=== PATIENT | female | born 1970 | race Caucasian/White ===

== ENCOUNTER → 2017-05-19 | Outpatient (CLI) | payer BC ==
[~2017-05-19] MED LIST: ACHD5005 PO; ALPR0.2550 PO; ASP325TEC PO; CHOL200018 PO; CTRZ10T PO; CYCL10TA9 PO; HYDR-757 PO; IBP600T1 PO; NAPR-243 PO; OMEG-12 PO; OMEG10005 PO; PHEN37.555 PO; PNT40TEC PO; SITA100T PO; SITA25TA PO; SPIR100T28 PO; SULF1TAB35 PO; [UNRECOGNIZED DRUG - OTHER]; [UNRECOGNIZED DRUG - REMARK]
[2017-05-19 08:30] LABS: MEAN PLATELET VOLUME 9.2 FL (7.4-10.4); RED BLOOD COUNT 5.17 10^6/uL (4.35-5.85); RED CELL DISTRIBUTION WIDTH 13.4 % (10.0-14.5)
[2017-05-19 08:48] LABS: ALANINE AMINOTRANSFERASE 26 U/L (0-55); ALBUMIN 4.7 GM/DL (3.2-4.5); ANION GAP 11 MMOL/L (5-14); ASPARTATE AMINO TRANSFERASE 16 U/L (5-34); BILIRUBIN,TOTAL 0.9 MG/DL (0.1-1.0); BLOOD UREA NITROGEN 14 MG/DL (7-18); BUN/CREATININE RATIO 19; CALCIUM 9.8 MG/DL (8.5-10.1); CARBON DIOXIDE 21 MMOL/L (21-32); CHLORIDE 105 MMOL/L (98-107); CHOLESTEROL 231 MG/DL (< 200); CREATININE SERUM 0.75 MG/DL (0.60-1.30); DIRECT LDL 164 MG/DL (1-129); GFR ESTIMATED > 60; GLUCOSE 105 MG/DL (70-105); SODIUM 137 MMOL/L (135-145); TOTAL PROTEIN 7.9 GM/DL (6.4-8.2); TRIGLYCERIDES 252 MG/DL (<150); VLDL CHOLESTEROL 50 MG/DL (5-40)
[2017-05-19 09:08] LABS: THYROID STIMULATING HORMONE 2.04 UIU/ML (0.35-4.94)
== END ==
LOC: LAB 08:09
PROVIDERS: ATTEND Nurse Practitioner Family
DX: E78.5 Hyperlipidemia, unspecified (principal); E03.9 Hypothyroidism, unspecified
CPT/HCPCS: 36415; 80053; 80061; 84439; 84443; 84481; 85027

== ENCOUNTER → 2017-05-23 | Outpatient (CLI) | payer BC ==
--- NOTE | 2017-05-23 11:54 | Diagnostic Imaging Report ---
PROCEDURE: US Thyroid. TECHNIQUE: Multiple real-time grayscale images were obtained of the thyroid in various projections. Thyroid ultrasound. INDICATION: Right thyroid nodule. The left thyroid lobe has been removed 5 years ago. FINDINGS: The right thyroid lobe is 5.6 x 2.2 x 2.2 CM. It is fairly homogeneous with no focal lesion seen. The left lobe has been removed. IMPRESSION: Status post left hemithyroidectomy with no focal nodule seen in the right thyroid lobe. Dictated by: Dictated on workstation # [id number]
== END ==
LOC: RAD 11:01
PROVIDERS: ATTEND Internal Medicine
DX: E89.0 Postprocedural hypothyroidism (principal)
CPT/HCPCS: 76536

== ENCOUNTER → 2017-06-19 | Outpatient (CLI) | payer BC ==
--- NOTE | 2017-06-20 09:01 | Diagnostic Imaging Report ---
Digital mammogram bilateral screening. INDICATION: Screening. This study was compared to the prior exam of 05/03/2016; 07/23/2013; and 06/10/2012. At this time there are no current complaints. The current study was also evaluated with a Computer Aided Detection (CAD) system. FINDINGS: The fibroglandular tissue in both breasts is heterogeneously dense. This does limit the sensitivity of this exam. Overall, there does not appear to have been any significant change when compared to the prior study. No primary or secondary sign of malignancy is noted. IMPRESSION: There is no radiographic evidence for malignancy. ACR BI-RADS Category 1: Negative. Result letter will be mailed to the patient. Note: At least 10% of breast cancer is not imaged by mammography. Dictated by: Dictated on workstation # [id number]
== END ==
LOC: RAD 11:15
PROVIDERS: ATTEND Obstetrics & Gynecology
DX: Z12.31 Encounter for screening mammogram for malignant neoplasm of breast (principal)
CPT/HCPCS: 77067

== ENCOUNTER 2019-04-23 08:54 | Outpatient (RCR) | payer BC ==
[~2019-04-23 08:54] MED LIST changes: +HYDR-4226 PO; -HYDR-757 PO
== END 2019-07-22 | disposition home or self-care (01) ==
LOC: CARD 08:54
PROVIDERS: ATTEND Nurse Practitioner Family
DX: I49.9 Cardiac arrhythmia, unspecified (principal); I49.1 Atrial premature depolarization; I49.3 Ventricular premature depolarization
CPT/HCPCS: 93225; 93226

== ENCOUNTER → 2023-01-02 | Outpatient (CLI) | payer BC ==
[~2023-01-02] MED LIST changes: -SULF1TAB35 PO; +SULF1TAB38 PO
--- NOTE | 2023-01-02 10:20 | Diagnostic Imaging Report ---
PROCEDURE: US Renal Bilateral. TECHNIQUE: Multiple real-time grayscale images were obtained over the kidneys in various projections bilaterally. INDICATION: Dysuria. COMPARISON: None FINDINGS: Right kidney: Length (cm): 13 Hydronephrosis: None Cortex: Normal thickness and echogenicity Other: No shadowing stones or solid masses. Left kidney: Length (cm): 12.6 Hydronephrosis: None Cortex: Normal thickness and echogenicity Other: No shadowing stones or solid masses. Bladder: Prevoid volume (mL): 94 Postvoid volume is 9 mm Ureteral jets: Bilateral ureteral jets are seen Other: There is questionable wall thickening of the bladder. IMPRESSION: 1. No acute renal abnormality. 2. Questionable urinary bladder wall thickening. This could be due to chronic outlet obstruction. Urinalysis could be considered to exclude infection. Dictated by: Dictated on workstation # [id number]
== END ==
LOC: RAD 08:44
PROVIDERS: ATTEND Nurse Practitioner Family
DX: R30.0 Dysuria (principal)
CPT/HCPCS: 76770

== ENCOUNTER 2023-04-20 05:28 | Emergency (ER) | payer BC ==
[2023-04-20] MEDS ORDERED: FAMOTIDINE 20 MG (PEPCID) TABLET PO STA (06:07)
[2023-04-20] MEDS ORDERED: diphenhydrAMINE 50 MG/ML INJ (BENADRYL) IV STA (06:07)
--- NOTE | 2023-04-20 06:13 | ED General ---
General Chief Complaint: Allergic Reaction Stated Complaint: HIVES Source of Information: Patient Exam Limitations: No Limitations History of Present Illness Date Seen by Provider: Apr 20, 2023 Time Seen by Provider: 05:53 Initial Comments Here with report of allergic reaction hives noted since 1 AM. She has taken Benadryl [id number] tablets a few times this morning including 2 at about 2 AM and then another 2 more in between and had resolution of the hives. She reports that she has had hives all over her life. She is on allergy medicine. No known inciting event symptoms, lotions, soaps or drainage. She did eat cake with red eyes seen yesterday and is wondering if it is the red food coloring. Denies breathing problems, throat swelling, abdominal pain or weakness. States the hives started on her back and have spread and now she has them on her body overall. Timing/Duration: 4-6 Hours Severity: Moderate Associated Systoms: Other (hives with itching) Allergies and Home Medications Allergies Coded Allergies: acetaminophen (Verified Allergy, Unknown, 02/28/16) butorphanol tartrate (Verified Allergy, Unknown, 02/28/16) ciprofloxacin (Unverified Allergy, Unknown, 02/28/16) erythromycin base (Verified Allergy, Unknown, 02/28/16) meperidine HCl (Verified Allergy, Unknown, 02/28/16) tramadol HCl (Verified Allergy, Unknown, 02/28/16) Patient Home Medication List Home Medication List Reviewed: Yes Alprazolam (Alprazolam) 0.25 Mg Tab.rapdis, 1 EACH PO HS, (Reported) Entered as Reported by: DAVID HAYES on 12/23/111745 Aspirin (Aspirin Ec 325 Mg) 325 Mg Tabec, 325 MG PO DAILY, (Reported) Entered as Reported by: DAVID HAYES on 12/23/111745 Cetirizine Hcl (Zyrtec) 10 Mg Tablet, 1 EACH PO DAILY, (Reported) Entered as Reported by: GLORIA IQBAL on 12/22/11 1038 Cholecalciferol (Vitamin D3) (Vitamin D-3) 2,000 Unit Capsule, 2,000 UNIT PO DAILY, (Reported) Entered as Reported by: GLORIA IQBAL on 12/22/11 1038 Hydrocodone/Acetaminophen (Hydrocodone/Acetaminophen 5 MG/325 MG TAB) 1 Each Tablet, 1 EACH PO Q4H PRN for PAIN Prescribed by: NINA GATES on 02/28/162117 Ibuprofen (Motrin) 600 Mg Tab, 600 MG PO Q8H PRN, (Reported) Entered as Reported by: DAVID HAYES on 12/23/111745 Hermitage-3 Fatty Acids (H[place]itage-3) 1,000 Mg Capsule, 3,000 MG PO DAILY, (Reported) Entered as Reported by: DAVID HAYES on 12/23/111745 Pantoprazole Sodium (Protonix) 40 Mg Tablet.dr, 1 TAB PO DAILY, (Reported) Entered as Reported by: DAVID HAYSE on 12/23/111745 Phentermine Hcl (Phentermine Hcl) 37.5 Mg Capsule, 37.5 MG PO DAILY, (Reported) Entered as Reported by: GLORIA IQBAL on 12/22/11 1038 Prednisone (Prednisone) 20 Mg Tab, 40 MG PO DAILY Prescribed by: ANN SEGAL on 04/20/23 0632 Sitagliptin Phosphate (Januvia) 100 Mg Tablet, 1 EACH PO DAILY, (Reported) Entered as Reported by: GLORIA IQBAL on 12/22/11 1038 Spironolactone (Spironolactone) 100 Mg Tablet, 100 MG PO DAILY, (Reported) Entered as Reported by: GLORIA IQBAL on 12/22/11 1038 Sulfamethoxazole/Trimethoprim (Bactrim Ds Tablet) 1 Each Tablet, 1 EACH PO BID Prescribed by: NINA GATES on 02/28/162117 Review of Systems Review of Systems Constitutional: No chills, No fever EENTM: No nose congestion, No throat pain, No throat swelling Respiratory: No cough, No short of breath Cardiovascular: no symptoms reported Gastrointestinal: No nausea, No vomiting Musculoskeletal: no symptoms reported Skin: see HPI, change in color, pruritus, rash Past Xvglmwg-[id number]-Ctqghg Hx Patient Social History Tobacco Use?: No Substance use?: No Alcohol Use?: No Past Medical History Surgeries: Yes Breast, Gallbladder, Hysterectomy Respiratory: No Cardiac: No Integumentary: Yes Physical Exam Vital Signs Vital Signs - First Documented 04/20/23 05:45 Temp 37.5 Pulse 99 Resp 18 B/P (MAP) 152/99 (116) Pulse Ox 98 O2 Delivery Room Air Capillary Refill : Height, Weight, BMI Height: 5'4.00" Weight: 190lbs. 0.0oz. 86.830328vw; 32.6 BMI Method:Stated General Appearance: WD/WN, Mild Distress (Itching) HEENT: PERRL/EOMI, Pharynx Normal Neck: Non Tender, Supple Respiratory: Lungs Clear, Normal Breath Sounds, No Accessory Muscle Use Cardiovascular: Regular Rate, Rhythm, No Murmur Neurologic/Psychiatric: Alert, Oriented x3 Skin: Warm/Dry, Other (Hives noted to arms, neck, torso and legs) Progress/Results/Core Measures Suspected Sepsis SIRS Temperature: Pulse: Respiratory Rate: Blood Pressure / Mean: Results/Orders My Orders Orders - ANN SEGAL MD Dexamethasone Injection (Decadron Inje (04/20/23 06:15) Famotidine Tablet (Pepcid Tablet) (04/20/23 06:07) Diphenhydramine Injection (Benadryl Inje (04/20/23 06:15) Medications Given in ED Current Medications Medications Dose Ordered Sig/Aneta Route Start Time Stop Time Status Last Admin Dose Admin Dexamethasone Sodium Phosphate 10 mg ONCE ONCE IM 04/20/23 06:15 04/20/23 06:16 DC 04/20/23 06:16 10 MG Vital Signs/I&O 04/20/23 04/20/23 04/20/23 05:45 05:45 07:26 Temp 37.5 Pulse 99 78 Resp 18 18 B/P (MAP) 152/99 (116) 146/90 Pulse Ox 98 98 O2 Delivery Room Air Room Air Capillary Refill : Progress Note : Progress Note Seen and evaluated. Benadryl 25 mg IM, Decadron 10 mg IM and Pepcid 20 mg p.o. ordered. We will monitor the patient and evaluate for improvement and monitor for worsening. This was discussed with the patient who agrees. 0720: She is somewhat improved and feels comfortable going home. Discharged home with return precautions. Patient verbalized understanding instructions and agreement with plan. OTC meds discussed and follow-up instructions and plan discussed. Departure Impression Primary Impression: Hives Disposition: 01 HOME, SELF-CARE Condition: Stable Departure-Patient Inst. Decision time for Depature: 07:20 Referrals: ADEEL PIERRE DNP (PCP) Primary Care Physician DESTINI PIERRE DO (Family) Primary Care Physician Patient Instructions: Hives Add. Discharge Instructions: All discharge instructions reviewed with patient and/or family. Voiced understanding. You may take Benadryl/diphenhydramine 25 to 50 mg every 6 hours as needed for itching. You may take [id number]-[id number]-[id number] Pepcid or the generic famotidine 20 mg daily over the next 4 to 5 days as needed to reduce itching and hives. Take other medications as directed. If you are improved, you may stop taking the prednisone after 3 days. If not completely resolved, continue that for the full 7 days. Follow-up with your doctor this week for recheck and further evaluation. Return for worse hives, breathing problems, abdominal pain, vomiting, tongue or throat swelling or other concerns as needed. Scripts Prednisone (Prednisone) 20 Mg Tab 40 MG PO DAILY, #14 TAB 0 Refills Prov: ANN SEGAL MD 04/20/23 ANN SEGAL MD Apr 20, 2023 06:13
[2023-04-20] MEDS ORDERED: diphenhydrAMINE 50 MG/ML INJ (BENADRYL) IM ONE (06:15)
[2023-04-20] MEDS ORDERED: PRD20T PO (06:32)
[2023-04-20 07:26] VITALS: BP 146/90
== END 2023-04-20 07:26 | disposition home or self-care (01) ==
LOC: EDUNIT# 05:28 → ER 05:31
DX: L50.9 Urticaria, unspecified (principal)
CPT/HCPCS: 99284